=== PATIENT | male | born 1950 | race Caucasian/White ===

== ENCOUNTER → 2017-01-28 | Outpatient (CLI) | payer MEDICARE, OTHER ==
[~2017-01-28] MED LIST: AMIT10TA PO; APIX2.5T PO; ATOR20TA PO; BIMA2.5D EACHEYE; BRIN10DR EACHEYE; FINA5TAB4 PO; GUAI600T47 PO; IOHEXOL 300 MG/ML 100ML VIAL. IV ONE; KETO15CR2 TP; METO-239 PO; ROPI1TAB PO; TAMS0.4C97 PO; TRIA15OI TP
--- NOTE | 2017-01-28 12:30 | KCIC ---
EXAM: Neck CT with intravenous contrast. HISTORY: Right tonsillar malignancy. TECHNIQUE: Computed tomographic images of the neck were obtained following the administration of 100 cc Omnipaque 300 intravenous contrast. *One or more of the following individualized dose reduction techniques were utilized for this examination: 1. Automated exposure control. 2. Adjustment of the mA and/or kV according to patient size. 3. Use of iterative reconstruction technique. COMPARISON: None. FINDINGS: There is artifact from dental amalgam limiting evaluation of the oropharynx. The lingual and palatine tonsils and adenoids are fairly symmetric. There are few benign tonsillar calcifications. There are prominent enhancing vessels within the right pterygoid musculature, a nonspecific finding. The airways midline and patent. The parotid and submandibular glands are unremarkable. There is a 5 mm nodule within the left thyroid lobe, likely benign based on size. The visualized portions of the brain are unremarkable. The visualized paranasal sinuses and mastoid air cells are clear. There are left greater than right jono bullosa. No pathologically enlarged lymph node is seen. There is no significant carotid or vertebral artery stenosis. The lung apices are unremarkable. There are degenerative changes within the cervical spine. This includes disc protrusions a disc osteophyte complexes with facet and uncovertebral arthropathy at multiple levels. The degenerative changes result in mild bilateral foraminal stenosis at C3-C4, severe right foraminal and mild central canal stenosis at C5-C6, and moderate bilateral foraminal stenosis at C6-C7. There is lucency traversing the right C7 lamina, developmental in appearance. IMPRESSION: No clear finding to correlate with reported right tonsillar malignancy. Evaluation of the oral pharynx is slightly limited due to artifact from dental amalgam. There are asymmetric enhancing vessels within the right pterygoid musculature. No clear mass or lymphadenopathy is seen. PET/CT may be useful for better characterization. Electronically signed by: Maria Elena Jordan MD (01/28/2017 12:27 PM) [email or web address]
== END | disposition home or self-care (01) ==
LOC: KCIC CT 10:00
PROVIDERS: ATTEND Otolaryngology
DX: C02.4 Malignant neoplasm of lingual tonsil (principal); I10 Essential (primary) hypertension; Z79.01 Long term (current) use of anticoagulants
CPT/HCPCS: 70491; 82565; Q9967